=== PATIENT | female | born 1940 | race Caucasian/White ===

== ENCOUNTER 2018-05-13 23:16 | Emergency (ER) | payer MEDICARE, OTHER ==
[~2018-05-13] VITALS: Ht 170.2 cm; Wt 79.4 kg
--- OUTSIDE RECORDS SUMMARY | ~2018-05-13 | XMS | Clinical Summary ---
Demographics + + + | Address | [address] | | | [place] [address] | + + + | Home Phone | | + + + | Preferred Language | Unknown | + + + | Marital Status | Single | + + + | Shinto Affiliation | Unknown | + + + | Race | White | + + + | Ethnic Group | Not or | + + + Author + + + | Author | [facility] | + + + | Organization | [facility] | + + + | Address | Unknown | + + + | Phone | Unavailable | + + + Support + + +---------+ + | Name | Relationship | Address | Phone | + + +---------+ + | Cyndi Winters | ECON | Unknown | | + + +---------+ + | Lior Hanna | ECON | Unknown | | + + +---------+ + Care Team Providers + +------+ + | Care Home Health Aid Name | Role | Phone | + +------+ + | Luis A Burris MD | PP | | + +------+ + Source Comments BLANKA is fully live on both [facility] and [facility] [place] Allergies No Known Allergies Current Medications + + +-------+---------+------+------+-------+ | Prescription | Sig. | Disp. | Refills | Star | End | Statu | | | | | | t | Date | s | | | | | | Date | | | + + +-------+---------+------+------+-------+ | FOLBEE OR | Take by mouth. | | | | | Activ | | | | | | | | e | + + +-------+---------+------+------+-------+ | Magnesium 250 mg | Take by mouth once | | | | | Activ | | Oral Tablet | daily. | | | | | e | + + +-------+---------+------+------+-------+ | levothyroxine 100 | Take 100 mcg by | | | | | Activ | | mcg Oral Tablet | mouth once daily. | | | | | e | + + +-------+---------+------+------+-------+ | trazodone 100 mg | Take 100 mg by mouth | | | | | Activ | | Oral Tablet | three times daily. | | | | | e | + + +-------+---------+------+------+-------+ | VITAMIN E ORAL | Take by mouth. | | | | | Activ | | | | | | | | e | + + +-------+---------+------+------+-------+ | CALCIUM ORAL | Take by mouth. | | | | | Activ | | | | | | | | e | + + +-------+---------+------+------+-------+ | ASPIRIN ORAL | Take by mouth. | | | | | Activ | | | | | | | | e | + + +-------+---------+------+------+-------+ | SPIRONOLACTONE | Take by mouth. | | | | | Activ | | ORAL | | | | | | e | + + +-------+---------+------+------+-------+ | cycloSPORINE 0.05 | 1 drop two times | | | | | Activ | | % ophthalmic | daily. | | | | | e | | dropperette | | | | | | | + + +-------+---------+------+------+-------+ | CHOLECALCIFEROL | Take by mouth. 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 | + + + Family History + + +------+ + | Medical History | Relation | Name | Comments | + + +------+ + | Additional Family | Father | | ALS | | History | | | | + + +------+ + | Additional Family | Maternal | | breast cancer | | History | Aunt | | | + + +------+ + | Cataract | | | | + + +------+ + + +------+--------+ + | Relation | Name | Status | Comments | + +------+--------+ + | Father | | | | + +------+--------+ + | Maternal Aunt | | | | + +------+--------+ + Social History + + + +--------+ + | Tobacco Use | Types | Packs/Day | Years | Date | | | | | Used | | + + + +--------+ + | Former Smoker | Cigarettes | 1 | 15 | Quit: 09/29/1969 | + + + +--------+ + + +---+---+---+ | Smokeless Tobacco: | | | | | Never Used | | | | + +---+---+---+ + + +---------+ + | Alcohol Use | Drinks/We | oz/Week | Comments | | | ek | | | + + +---------+ + | Yes | 7 | 4.2 | | | | Standard | | | | | drinks or | | | | | | | | | | equivalen | | | | | t | | | + + +---------+ + + + + | Sex Assigned at | Date Recorded | | | | + + + | Not on file | | + + + Last Filed Vital Signs + +---------+ + | Vital Sign | Reading | Time Taken | + +---------+ + | Blood Pressure | 118/82 | 10/24/2008 8:25 AM PST | + +---------+ + | Pulse | 60 | 10/24/2008 8:25 AM PST | + +---------+ + | Temperature | - | - | + +---------+ + | Respiratory Rate | 16 | 10/24/2008 8:25 AM PST | + +---------+ + | Oxygen Saturation | - | - | + +---------+ + | Inhaled Oxygen | - | - | | Concentration | | | + +---------+ + | Weight | - | - | + +---------+ + | Height | - | - | + +---------+ + | Body Mass Index | - | - | + +---------+ + Plan of Treatment +--------+---------+ + + + | Date | Type | Specialty | Care Team | Description | +--------+---------+ + + + | 07/22/ | Office | | Michaelle Guerrero, | | | 2018 | Visit | | MDPhD [address] | | | | | | [address] | | | | | | [place], [place] | | | | | | [address] | | | | | | [phone] | | | | | | | | +--------+---------+ + + + + + + + + | Health Maintenance | Due Date | Last Done | Comments | + + + + + | INFLUENZA VACCINE | | | | | (FLU SHOT) | 8 | | | + + + + + Results Not on filefrom Last 3 Months Insurance + +--------+ +--------+ + + | Payer | Benefi | Subscriber | Type | Phone | Address | | | t Plan | ID | | | | | | / | | | | | | | Group | | | | | + +--------+ +--------+ + + | MEDICARE | MEDICA | xxxxxxxxxx | Medica | [phone] | [address] | | | RE A & | | re | [phone] | [place] [address] | | | B | | | | | + +--------+ +--------+ + + | MODA MEDICARE | MODA | xxxxxxxxx | POS | [phone] | [address] [address] | | SUPPLEMENT | MEDICA | | | [phone] | [place] [address] | | | RE | | | | | | | SUPPLE | | | | | | | MENT | | | | | + +--------+ +--------+ + + + +--------+ +--------+ + + | Guarantor Name | Accoun | Relation to | Date | Phone | Billing Address | | | t Type | Patient | of | | | | | | | | | | + +--------+ +--------+ + + | HINA DONOVAN | Person | Self [birth year] Home: | [address] | | | al/Fam | | 1940 | [phone] | [place] [address] | | | andrés | | | [phone] | | + +--------+ +--------+ + +"
--- OUTSIDE RECORDS SUMMARY | ~2018-05-13 | XMS | Clinical Summary ---
Demographics + + + | Address | [address] | | | [place] [address] | + + + | Home Phone | | + + + | Preferred Language | Unknown | + + + | Marital Status | Single | + + + | Adventist Affiliation | Unknown | + + + | Race | Unknown | + + + | Ethnic Group | Unknown | + + + Author + + + | Author | [facility] | | | and [place] | + + + | Organization | [facility] | | | and [place] | + + + | Address | Unknown | + + + | Phone | Unavailable | + + + Care Team Providers + +------+ + | Care Sound Cutter Name | Role | Phone | + +------+ + PP | Unavailable | + +------+ + Allergies Not on File Current Medications Not on file Active Problems Not on file Social History + +-------+ +--------+------+ | Tobacco Use | Types | Packs/Day | Years | Date | | | | | Used | | + +-------+ +--------+------+ | Never Assessed | | | | | + +-------+ +--------+------+ + + + | Sex Assigned at | Date Recorded | | | | + + + | Not on file | | + + + Plan of Treatment + + + + + | Health Maintenance | Due Date | Last Done | Comments | + + + + + | Vaccine: | | | | | Dtap/Tdap/Td (1 - | 9 | | | | Tdap) | | | | + + + + + | Vaccine: | | | | | Pneumococcal 65+ | 5 | | | | Low/Medium Risk (1 | | | | | of 2 - PCV13) | | | | + + + + + | Vaccine: Influenza | | | | | (#1) | 8 | | | + + + + + Results Not on filefrom Last 3 Months"
--- OUTSIDE RECORDS SUMMARY | ~2018-05-13 | XMS | Clinical Summary ---
Demographics + + + | Address | [address] | | | [place] [address] | + + + | Home Phone | | + + + | Preferred Language | Unknown | + + + | Marital Status | Single | + + + | Jewish Affiliation | Unknown | + + + | Race | Unknown | + + + | Ethnic Group | Unknown | + + + Author + + + | Author | [facility] | | | and [place] | + + + | Organization | [facility] | | | and [place] | + + + | Address | Unknown | + + + | Phone | Unavailable | + + + Care Team Providers + +------+ + | Care Cisco Consultant Name | Role | Phone | + [...]
--- OUTSIDE RECORDS SUMMARY | ~2018-05-13 | XMS | Clinical Summary ---
Demographics + + + | Address | [address] | | | [place] [address] | + + + | Home Phone | | + + + | Preferred Language | Unknown | + + + | Marital Status | Single | + + + | Roman Catholic Affiliation | Unknown | + + + [...] Team Providers + +------+ + | Care Professor Of Geography Name | Role | Phone | + +------+ + | Luis A Burris MD | PP | | + +------+ + Source Comments BLANKA is fully live on both [facility] and [facility] InPatient.[facility] Allergies No Known Allergies Current Medications + [...] | 2018 | Visit | | [address]PhD [address] | | | | | | [address] | | | | | | [place], [place] | | | | | | [address] | | | | | | [phone] | | | | | | | [...] & | | re | [phone] | [place] [address] | | | B | | | | | + +--------+ +--------+ + + | MODA MEDICARE | MODA | xxxxxxxxx | POS | [phone] | [address] [phone] | | SUPPLEMENT | MEDICA | | | [phone] | [place] [address] | | | RE | | | [...] | 1940 | [phone] | [place] [address] | | | andrés | | | [phone] | | + +--------+ +--------+ + +"
[2018-05-13] MEDS ORDERED: LEVOTHYROXINE137 MCG PO (23:40)
[2018-05-13] MEDS ORDERED: ALDACTAZIDE 251 EACH PO (23:41)
[2018-05-13] MEDS ORDERED: TRAZODONE HCL100 MG PO (23:41)
[2018-05-13] MEDS ORDERED: ASPIR-LOW81 MG PO (23:41)
[2018-05-13] MEDS ORDERED: MAGNESIUM500 MG PO (23:42)
[2018-05-13] MEDS ORDERED: VITAMIN D32000 UNIT PO (23:42)
[2018-05-13] MEDS ORDERED: VITAMIN E400 UNI1 PO (23:42)
[2018-05-13] MEDS ORDERED: CALCIUM600 MG PO (23:43)
[2018-05-13] MEDS ORDERED: FOLIC ACID1 MG PO (23:43)
--- NOTE | 2018-05-14 15:39 | EKG ---
[facility] [address], [place] [address] Signed Sinus rhythm with marked sinus arrhythmia with 1st degree AV block Possible Anterior infarct , age undetermined Abnormal ECG Confirmed by GAYLE PUGH MD ([id number]) on 05/14/2018 3:38:46 PM Electronically Signed By: GAYLE PUGH MD 05/14/18 1539 PATIENT NAME: JOHNSONHINA L Electrocardiogram DATE OF : 40 PHYSICIAN: GAYLE PUGH MD REPORT #: [id number] REPORT IS CONFIDENTIAL AND NOT TO BE RELEASED WITHOUT AUTHORIZATION
== END 2018-05-14 02:57 | disposition home or self-care (01) ==
LOC: ED 23:16
DX: T43.211A Poisoning by selective serotonin and norepinephrine reuptake inhibitors, accidental (unintentional), initial encounter (principal); R55 Syncope and collapse; Z88.5 Allergy status to narcotic agent; Z88.8 Allergy status to other drugs, medicaments and biological substances; Z79.899 Other long term (current) drug therapy; Z79.82 Long term (current) use of aspirin; W18.30XA Fall on same level, unspecified, initial encounter
CPT/HCPCS: 36415; 71045; 80053; 84484; 85025; 93005; 93010; 99284

== ENCOUNTER 2021-01-04 07:55 | Day surgery (SDC) | payer MEDICARE, OTHER ==
[~2021-01-04] VITALS: Ht 170.2 cm; Wt 77.3 kg
[~2021-01-04 07:55] MED LIST: ALDACTAZIDE 251 EACH PO; ASPIR-LOW81 MG PO; CALCIUM600 MG PO; FOLIC ACID1 MG PO; LEVOTHYROXINE137 MCG PO; MAGNESIUM500 MG PO; TRAZODONE HCL100 MG PO; VITAMIN D32000 UNIT PO; VITAMIN E400 UNI1 PO
[2021-01-04] MEDS ORDERED: FOLBIC TABLET1 EACH PO (08:32)
[2021-01-04] MEDS ORDERED: RESTASIS1 DROP OD (08:33)
--- NOTE | 2021-01-04 11:10 | NUR ---
PT HAS RETURNED FROM XR DEPT. HAS MANY WARM BLANKETS ON STATES SHES STILL COLD SO WARMING HOSE IN BLANKETS AND FEET WRAPPED IN WARM BLANKET. RAILS UP X 2. FAMILY AT .
[2021-01-04] MEDS ORDERED: MOTRIN IB200 MG PO (15:49)
[2021-01-04] MEDS ORDERED: TYLENOL EXTRA500 MG PO (15:49)
[2021-01-04] MEDS ORDERED: PERCOCET 7.5-31 EACH PO (15:49)
--- NOTE | 2021-01-04 15:49 | NUR ---
01/04/21 1549 Kacey Giordano 1529 PATIENT ARRIVES TO PACU SLEEPING. RESP EVEN AND UNLABORED, MASK AT 6 LITERS. 1535 PATIENT SLEEPING, AWAKENS WITH VERBAL STIMULI, ABLE TO STAY AWAKE AND ASK QUESTIONS APPROPRIATELY. RESP EVEN AND UNLABORED, MASK OFF, ROOM AIR SATS >95%. PATIENT REPORTS MINIMAL PAIN. 1545 PATIENT AWAKE AND TALKING WITH STAFF APPROPRIATELY. RESP EVEN AND UNLABORED, ROOM AIR SATS >93%. PATIENT REPORTS PAIN 4/10, TOLERABLE, DENIES PAIN MEDS. DENIES NAUSEA.
--- NOTE | 2021-01-04 16:32 | NUR ---
PATIENT BACK IN DAY SURGERY ROOM FROM PACU. RATES PAIN 2/10 IN LEFT BREAST. SURGICAL DRESSING UNDER LEFT BREAST WITH SCANT AMOUNT OF RED DRAINAGE. SURGICAL SITE WITH STERI STRIPS IN LEFT ARMPIT WITH SMALL AMOUNT OF RED DRAINAGE. RIGHT HAND IV WNL, SALINE LOCKED. VS CHECKED. SCDs ON. TOLERATING WATER. FRIEND AT BEDSIDE. SOUP ORDERED FOR PATIENT. CALL LIGHT WITHIN REACH.
--- NOTE | 2021-01-04 17:45 | NUR ---
ASSISTED PATIENT WITH PUTTING ON JARRELL FOR BREAST SUPPORT. NOTED SURGIAL SITES UNCHANGED, NO NEW DRAINAGE AND INTACT. PATIENT UP DRESSING SELF, REPORTS READY TO GO HOME. ADMINISTERED PAIN PILL PER MAR. PATIENT TOLERATED WELL. REPORTS PAIN IS TOLERABLE RATES 4/10 ON PAIN SCALE. PROVIDED PATIENT WITH DISCHARGE INSTRUCTION AND THEN PROVIDED WHEELCHAIR RIDE TO FRONT. DAUGHTER IN ROOM, ANSWERED QUESTIONS AND CONCERNS.
--- NOTE | 2021-01-06 13:48 | OR ---
[facility] [address], [place] [address] Signed DATE OF OPERATION: 01/04/2021 SURGEON: Shawna Tinoco MD PREOPERATIVE DIAGNOSIS: Left-sided infiltrating ductal breast carcinoma. POSTOPERATIVE DIAGNOSES: 1. Left-sided infiltrating ductal breast carcinoma. 2. Negative sentinel lymph nodes on frozen pathology. PROCEDURE: 1. Injection of methylene blue dye for sentinel lymph node identification. 2. Left deep axillary sentinel lymph node biopsies x2. 3. Left needle localized excision of breast tumor (partial mastectomy/lumpectomy). 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 Jaime Burris. She was found on mammography to have an abnormality of the left breast, which was biopsied and found to have infiltrating ductal carcinoma. This was performed by Dr. Escobar. Residual calcifications were noted at the site of biopsy and biopsy marker was left in place. She has no prior history of breast biopsy or prior history of breast cancer and has a family history of breast cancer in a maternal aunt. She has no other family members with breast cancer. She is admitted at this time to undergo excision of the tumor as well as sentinel lymph node biopsy, possible axillary dissection depending on frozen pathology of the sentinel lymph nodes. The risk of bleeding, infection, cosmetic deformity, and other unforeseen complications were reviewed with her. She understands and wished to proceed. FINDINGS: Needle localization by Dr. Escobar showed the lesion in question to be in the inferior central breast rather than the upper outer quadrant as had been reported by me previously. Wide resection was undertaken of this area, which included the microcalcifications as well as the biopsy marker and was confirmed on specimen radiograph to have complete excision of the area. As regards to the left axilla, good uptake of methylene blue dye as well as radionuclide Electronically Signed By: SHAWNA TINOCO MD 01/06/21 1348 PATIENT NAME: HINA ORNELAS OPERATIVE REPORT DATE OF : 40 REPORT #: [id number] PHYSICIAN: SHAWNA TINOCO MD PCP: JAIME BURIRS MD REPORT IS CONFIDENTIAL AND NOT TO BE RELEASED WITHOUT AUTHORIZATION [facility] [address], [place] [address] Signed was noted and 2 sentinel lymph nodes were identified and frozen pathology under the direction of Dr. Davis showed there to be no evidence of metastatic disease. An inframammary incision was performed which will maintain good cosmesis. DESCRIPTION OF PROCEDURE: The patient was received from radiology suite having undergone needle localization of the nonpalpable lesion. A relatively superficial in the inferior aspect of the central breast. I reviewed the films with Dr. Escobar and advance as the point of entry for localization was in the medial breast. Good uptake in the axilla of the radionuclide was also noted. After satisfactory general anesthesia with LMA technique, 1 mL of methylene blue dye was injected in the subepithelial area in the upper outer aspect of the left breast. Uptake of the lymphatics could be readily identified. The breast was then prepared with a Betadine solution and draped sterilely. The wire emanating from the medial aspect of the left breast in the inferior portion. It was directed laterally to the central portion of the breast. Application of the C-Trak gamma probe to the left axilla identified an area of high activity. A small transverse incision was made directly in this area. Electrocautery was used to divide the parenchyma in short ways and Eyad retractors were used to provide further retraction. Additional dissection was carried deep into the axilla. [facility] retractors were used and using blunt dissection with a tonsil clamp immediately identified was a blue sentinel lymph node. This was grasped and elevated and dissected free with electrocautery and labeled as sentinel lymph node #1. It had very high ability for dye as well as radionuclide. A short distance from this another similar such sentinel node was identified, it was excised in a similar way and passed as sentinel lymph node #2. Further interrogation of the axilla showed some activity high in the axilla, but was not readily identifiable and no further efforts were made to excise it. Plain gauze was applied to the wound. Attention was turned towards the primary lesion. Gentle manipulation of the wire showed it to emanate from the medial to central position. An inframammary skin incision was made and a flap developed superiorly and blunt dissection to the medial aspect ultimately identified the wire which was then delivered into the wound. The parenchyma was grasped with an Allis clamp and using electrocautery, wide resection was undertaken incorporating the pathway of the wire. The excision was taken beyond the hook of the wire; it is noted that the lesion in question was about a cm proximal to the hook. Wide resection was undertaken in this area to provide a negative margin. The medial and lateral aspects of the specimen were markedly sutured for orientation. Irrigation was undertaken. Palpation revealed no specific palpable abnormality into the breast Electronically Signed By: SHAWNA TINOCO MD 01/06/21 1348 PATIENT NAME: HINA ORNELAS OPERATIVE REPORT DATE OF : 40 REPORT #: [id number] PHYSICIAN: SHAWNA TINOCO MD PCP: JAIME BURRIS MD REPORT IS CONFIDENTIAL AND NOT TO BE RELEASED WITHOUT AUTHORIZATION [facility] [address], [place] [address] Signed parenchyma. Electrocautery was used for hemostasis after irrigation with sterile water. The wound was then packed. Attention was turned towards the axilla. There was good hemostasis. Irrigation was undertaken. The wound was closed with interrupted 2-0 Vicryl and running subcuticular 3-0 Vicryl. By this point, frozen pathology by Dr. Davis was reported showing both sentinel lymph nodes to be negative for metastatic disease. Steri-Strips were applied to the area. Promptly thereafter, the radiologist confirmed that the lesion in question was in the excised specimen including the marker as well as the parenchymal calcifications associated with the neoplasm. The breast wound was then closed with interrupted 2-0 Vicryl and deeper layers and running subcuticular 3-0 Vicryl for the skin. Steri-Strips were applied to each site and an Acticoat silver sponge dressing applied to the mammary crease. The patient was allowed to emerge from anesthesia, extubated, and taken to the recovery room in good condition having suffered no complications. Sponge, needle, and instrument counts were reported as correct x3. MD RICHY Pagan/TAMIKO /[id number] cc: MD Cecilia Urena MD Copies: JAIME BURRIS MD, CYNTHIA SUE MD ~ Electronically Signed By: SHAWNA TINOCO MD 01/06/21 1348 PATIENT NAME: JOHNSONHINA OPERATIVE REPORT DATE OF : 40 REPORT #: [id number] PHYSICIAN: SHAWNA TINOCO MD PCP: JAIME BURRIS MD REPORT IS CONFIDENTIAL AND NOT TO BE RELEASED WITHOUT AUTHORIZATION
--- NOTE | 2021-01-09 11:28 | PATH ---
[facility] [address] [facility] [place], [place] [address] Signed SPECIMEN(S): A LEFT BREAST SENTINEL LYMPH NODE 1 SPECIMEN(S): B LEFT BREAST SENTINEL LYMPH NODE 2 SPECIMEN(S): C LEFT INFERIOR CENTRAL BREAST SPECIMEN SOURCE: A. LEFT BREAST SENTINEL LYMPH NODE 1 B. LEFT BREAST SENTINEL LYMPH NODE 2 C. LEFT INFERIOR CENTRAL BREAST CLINICAL HISTORY: Infiltrating ductal carcinoma of left breast. FROZEN SECTION DIAGNOSIS: A. [place] lymph node #1: - No evidence of malignancy in outside energy sales representatives section frozen. (Dr. Davis, 01/04/21) B. [place] lymph node #2: - No evidence of malignancy in outside energy sales representatives section frozen. (Dr. Davis, 01/04/21) Frozen section diagnoses called to Dr. Santana. AI (under the direct supervision of a pathologist) The Gross Description was prepared using a voice recognition system. The report was reviewed for accuracy; however, sound-alike word errors, addition and/or deletions may occur. If there is any question about this report, please contact Client Services. FINAL PATHOLOGIC DIAGNOSIS: A. [place] lymph node #1, left axilla, excisional biopsy: - No evidence of malignancy in one lymph node (0/1). - See microscopic description. B. [place] lymph node #2, left axilla, excisional biopsy: - No evidence of malignancy in one lymph node (0/1). - See microscopic description. C. Breast, left inferior central, lumpectomy: - Invasive ductal carcinoma with the following features: - Tumor size: 6 mm, see Comment. - Histologic type: Invasive carcinoma of no special type (ductal). - Histologic grade (Ganga histologic score), see Comment: - Glandular (acinar)/tubular differentiation: Score 3. - Nuclear pleomorphism: Score 3. - Mitotic rate: Score 3. PATIENT NAME: HINA ORNELAS PATHOLOGY DATE OF : 40 REPORT #: [id number] PHYSICIAN: NADIA PATHOLOGY PCP: JAIME ORTEGA MD REPORT IS CONFIDENTIAL AND NOT TO BE RELEASED WITHOUT AUTHORIZATION [facility] [address] [place], [place] [address] Signed - Overall grade: Grade 3 of 3 (total score 9 of 9). - Tumor focality: Single focus of invasive carcinoma. - Ductal carcinoma in situ (DCIS): Present, negative for extensive intraductal component (EIC). - Architectural patterns: Solid, cribriform, and comedo. - Nuclear grade: Grade 3 (high). - Necrosis: Present, central (expansive "comedo" necrosis). - Lobular carcinoma in situ (LCIS): Not identified. - Margins: - Invasive carcinoma margins: Uninvolved by invasive carcinoma. - Distance from closest margin: 1 mm from undesignated margin. - Greater than 10 mm from medial and lateral margins. - DCIS margins: Uninvolved by DCIS. - Distance from closest margin: 3 mm from undesignated margin. - Greater than 10 mm from medial and lateral margins. - Regional lymph nodes: Uninvolved by tumor cells. - Total number of lymph nodes examined: 2. - Number of sentinel nodes examined: 2. - Treatment effect in the breast: No known pre-surgical therapy. - Lymphovascular invasion: Not identified. - Breast biomarker studies: Please refer to previously performed testing (VS-129, 12/11/2020) interpreted as ER positive, ND positive, HER2 negative (1+) by IHC, and Ki-67 proliferation index 22.4%. - Additional findings: Biopsy site changes associated with invasive carcinoma, fat necrosis, fibrocystic change. - Microcalcifications: Present associated with DCIS and non-neoplastic breast tissue. - Pathologic stage classification (pTNM, AJCC 8th ed.): pT1b (sn) pN0. COMMENT: Regarding specimen C: The remaining invasive carcinoma within the lumpectomy specimen is smaller than the carcinoma present within the corresponding biopsy (-). Therefore, the size of the tumor is based on the invasive carcinoma present within the biopsy specimen. The mitotic rate of the tumor is higher in the biopsy specimen than in the lumpectomy specimen, therefore the mitotic rate is also based on that of the biopsy specimen. As part of [employer] Quality Improvement Program, selected slides from this case were reviewed by another member of our pathology staff. PATIENT NAME: HINA ORNELAS PATHOLOGY DATE OF : 40 REPORT #: [id number] PHYSICIAN: NADIA PATHOLOGY PCP: JAIME ORTEGA MD REPORT IS CONFIDENTIAL AND NOT TO BE RELEASED WITHOUT AUTHORIZATION [facility] [address], [place] [address] Signed Note: The lumpectomy was received with two stitches, one designating the medial margin and the opposite designating the lateral margin. Per discussion with the submitting surgeon, the margins of interest were determined to be the medial margin, lateral margin, and all other surfaces were to be considered one margin (undesignated margin). NAL:NRT:cml:C1NR MICROSCOPIC EXAMINATION: Histologic sections of all submitted blocks are examined by light microscopy. These findings, together with the gross examination, support the pathologic diagnosis. Pancytokeratin (AE1/AE3) immunohistochemical stains (with appropriately staining controls) were performed on each section of the sentinel lymph nodes and confirm the absence of tumor cells. GROSS DESCRIPTION: Three specimens are received in three containers, labeled "CF." A. The specimen, labeled "CF, A," and designated on the requisition "sentinel lymph node #1, left breast, 10 PC, infiltrating ductal carcinoma," is received fresh for frozen section diagnosis and consists of 3.5 x 2.5 x 1.5 cm piece of fat. A2 0.0 x 1.1 x 0.9 cm lymph node candidate is identified, vertically sectioned, and outside energy sales representatives sections are submitted for frozen section in AFR1. The remainder of the lymph node candidate is submitted entirely as follows: A1 contents from cassette labeled "A FS1" A2 contents from cassette labeled "A2" B. The specimen, labeled "CF, B," and designated on the requisition "SLN #2, left breast, 10 PC," is received fresh for frozen section diagnosis and consists of a 2.5 x 1.3 x 0.5 cm piece of fat. A 2.5 x 0.5 x 0.5 cm lymph node candidate is identified, serially sectioned, and outside energy sales representatives sections are submitted for frozen section in BFR1. The remainder of the lymph node candidate is submitted entirely as follows: B1 contents from cassette labeled "B FS1" B2 contents from cassette labeled "B2" C. The specimen, labeled "CF, C," and designated on the requisition "the left inferior central breast cancer, long stitch pastrana lateral, short stitch pastrana medial," is received in formalin and consists of a 26 g, 5.7 x 4.7 x 3.5 cm, somewhat friable, lumpectomy specimen that is oriented with a short suture indicating medial and a long suture indicating lateral. Additionally the specimen contains a silver localization wire that runs the medial to lateral. Per PATIENT NAME: HINA ORNELAS PATHOLOGY DATE OF : 40 REPORT #: [id number] PHYSICIAN: NADIA PATHOLOGY PCP: JAIME ORTEGA MD REPORT IS CONFIDENTIAL AND NOT TO BE RELEASED WITHOUT AUTHORIZATION [facility] [address] [place] [id number] [address] request [address] Davis (after speaking with the surgeon) the specimen is inked as follows: Medial = red; lateral = orange; remaining specimen = blue. The specimen is sectioned from lateral to medial into 8 slices to reveal an ill-defined, indurated, 1.2 x 1.0 x 0.7 cm lesion (slices 5-7) that grossly appears to involve the blue inked margin, is 0.4 cm from the medial inked margin, and 1.7 cm from the lateral inked margin. The remaining parenchyma is comprised of yellow fibrofatty and jamison-white fibroglandular tissue. Fibroglandular tissue comprises approximately 5% of the remaining parenchyma. An additional discrete mass/lesion is not grossly identified. Also in the container are multiple yellow, fibrofatty tissue fragments from less than 0.1 up to 0.8 cm in greatest dimension. The specimen is submitted entirely as follows: C1 additional fibrofatty tissue fragments from within container C2-C5 lateral end perpendicularly sectioned (slice one) C6-C11 slice 2 cross-sectioned C12-C19 slice 3 cross-sectioned C20-C23 slice 4 cross-sectioned C24-C25 slice 5 bisected C26-C29 slice 6 sectioned C30-C31 slice 7 bisected C32-C34 medial end perpendicularly cross-sectioned (slice 8) Cold ischemic time: Grossly indeterminate due to lack of information Formalin fixation time: Approximately 21 hours ADDITIONAL NOTES: Immunohistochemical and/or in situ hybridization studies were performed on this case with the appropriate positive controls that react as expected. This test was developed and its performance characteristics determined by [employer]. It has not been cleared or approved by the U.S. Food and Drug Administration. The FDA has determined that such clearance or approval is not necessary. This test is used for clinical purposes. It should not be regarded as investigational or for research. [employer] is certified under the Clinical Laboratory Improvement Amendments of 1988 (CLIA) as qualified to perform high complexity clinical laboratory testing. This assay has not been validated for specimens that have been decalcified. PERFORMING LABORATORY: PATIENT NAME: HINA ORNELAS PATHOLOGY DATE OF : 40 REPORT #: [id number] PHYSICIAN: NADIA PATHOLOGY PCP: JAIME ORTEGA MD REPORT IS CONFIDENTIAL AND NOT TO BE RELEASED WITHOUT AUTHORIZATION [facility] [address] [facility] [place], [place] [address] Signed [facility], [address] [address] (CLIA# [id number]). The technical component was performed by [employer], [address] [place] [id number] (Truck Driver: Sonia Llanos MD; CLIA# [id number]). Professional interpretation was performed by [employer] [facility], [address] [address] (CLIA# [id number]). Diagnostician: Naheed Davis MD Pathologist Electronically Signed 01/09/2021 Copies: ~ PATIENT NAME: HINA ORNELAS PATHOLOGY DATE OF : 40 REPORT #: [id number] PHYSICIAN: NADIA GALLEGO PCP: JAIME ORTEGA MD REPORT IS CONFIDENTIAL AND NOT TO BE RELEASED WITHOUT AUTHORIZATION
== END 2021-01-04 17:45 | disposition home or self-care (01) ==
LOC: DS 07:55 → OPS 07:55 → EDSTATUS 09:00 → OPS 09:00 → US 09:00 → OPS 17:45
PROVIDERS: ATTEND Surgery
PROC: 0HBU0ZZ Excision of Left Breast, Open Approach (ICD-10-PCS; principal; 2021-01-04 11:30)
PROC: 8E0W3EZ Fluorescence Guided Procedure of Trunk Region, Percutaneous Approach (ICD-10-PCS; 2021-01-04 11:30)
PROC: 0HBU3ZX Excision of Left Breast, Percutaneous Approach, Diagnostic (ICD-10-PCS; 2021-01-04 11:30)
DX: C50.912 Malignant neoplasm of unspecified site of left female breast (principal); K21.9 Gastro-esophageal reflux disease without esophagitis; I10 Essential (primary) hypertension; E03.9 Hypothyroidism, unspecified; N28.9 Disorder of kidney and ureter, unspecified; Z79.52 Long term (current) use of systemic steroids; Z79.82 Long term (current) use of aspirin
CPT/HCPCS: 00404; 19281; 76098; 78195; A9541; J0690; J1100; J1644; J1885; J2001; J2405; J2704; J3010; J7121; Q9968

== ENCOUNTER 2022-07-19 20:20 | Emergency (ER) | payer MEDICARE, OTHER ==
[~2022-07-19] VITALS: Ht 170.2 cm; Wt 76.2 kg
[~2022-07-19 20:20] MED LIST changes: +FOLBIC TABLET1 EACH PO; +MOTRIN IB200 MG PO; +PERCOCET 7.5-31 EACH PO; +RESTASIS1 DROP OD; +TYLENOL EXTRA500 MG PO
--- OUTSIDE RECORDS SUMMARY | 2022-07-19 20:23 | XMS ---
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 ENancy VISIT COUNT (12 MO.) 1 SABINO Lira TOTAL 1 NOTE: Visits indicate total known visits. ED/UCC VISIT TRACKING (12 MO.) 07/19/2022 20:20 SABINO Callahan OR TYPE: Emergency COMPLAINT: - FOOT SWELLING INPATIENT VISIT TRACKING (12 MO.) No inpatient visits to display in this time frame [email or web address]
[2022-07-19] MEDS ORDERED: GABAPENTIN300 MG PO (21:03)
[2022-07-19] MEDS ORDERED: ANASTROZOLE1 MG PO (21:04)
[2022-07-19] MEDS ORDERED: CYCLOBENZAPRINE10 MG PO (21:04)
[2022-07-19] MEDS ORDERED: ROSUVASTATIN CAL5 MG PO (21:04)
[2022-07-20] MEDS ORDERED: COLCHICINE0.6 M1 PO (00:52)
--- NOTE | 2022-07-21 20:56 | EKG ---
[facility] [address] [place] [address] Signed Atrial flutter with variable AV block Left axis deviation Left ventricular hypertrophy with QRS widening and repolarization abnormality ( [place] product ) Cannot rule out Septal infarct (cited on or before 13-MAY-2018) Abnormal ECG When compared with ECG of 02-JAN-2021 10:59, Atrial flutter has replaced Sinus rhythm ST now depressed in Lateral leads Inverted T waves have replaced nonspecific T wave abnormality in Lateral leads Confirmed by Madelin Botello MD () on 07/21/2022 8:55:57 PM Electronically Signed By: MADELIN BOTELLO MD 07/21/222055 PATIENT NAME: HINA ORNELAS Electrocardiogram DATE OF : 40 PHYSICIAN: MADELIN BOTELLO MD REPORT #: [id number] REPORT IS CONFIDENTIAL AND NOT TO BE RELEASED WITHOUT AUTHORIZATION
== END 2022-07-20 01:23 | disposition home or self-care (01) ==
LOC: ED 20:20
DX: M10.9 Gout, unspecified (principal); Z88.5 Allergy status to narcotic agent; Z88.8 Allergy status to other drugs, medicaments and biological substances
CPT/HCPCS: 36415; 71045; 80053; 83605; 83880; 84484; 84550; 85025; 85379; 93005; 93010; 93971; 99284-25; G0480

== ENCOUNTER 2024-05-25 12:32 | Emergency (ER) | payer MEDICARE, OTHER ==
[~2024-05-25] VITALS: Ht 170.2 cm; Wt 63.3 kg
[~2024-05-25 12:32] MED LIST changes: +ANASTROZOLE1 MG PO; +COLCHICINE0.6 M1 PO; +CYCLOBENZAPRINE10 MG PO; +GABAPENTIN300 MG PO; +ROSUVASTATIN CAL5 MG PO
[2024-05-25] MEDS ORDERED: CEFTRIAXONE/SODIUM CHLORIDE 2 GM/100 ML PIGGYBACK IV ONE (13:00)
[2024-05-25 13:07] LABS: BASOPHILS 0.3 % (0-2); EOSINOPHILS 0.3 % (0-6); HEMATOCRIT 41.6 % (35.0-50.0); HEMOGLOBIN 14.1 g/dL (12.0-18.0); LYMPHOCYTES 11.7 % (24-44); MCH 32.1 (27-36); MCV 94.4 fl (81-99); NEUTROPHILS 77.7 % (39-80); PLATELET COUNT 211 K/uL (140-440); RBC 4.41 M/ul (4.3-5.7); RDW 13.2 (10.5-15.0)
[2024-05-25 13:21] LABS: ALBUMIN 3.2 g/dL (3.4-5.0); ALBUMIN/GLOBULIN RATIO 0.84 (1.1-2.4); ANION GAP 10.4 (7-21); BILIRUBIN, TOTAL 0.8 ng/dL (0.2-1.0); BUN/CREATININE RATIO 18.93 (6.0-28.6); CREATININE, SERUM 1.32 mg/dL (0.55-1.02); POTASSIUM 3.4 mmol/L (3.5-5.1)
[2024-05-25 14:19] VITALS: BP 121/79
== END 2024-05-25 14:22 | disposition home or self-care (01) ==
LOC: ED 12:32
PROVIDERS: Emergency Medicine
DX: L03.116 Cellulitis of left lower limb (principal); I48.91 Unspecified atrial fibrillation; Z79.01 Long term (current) use of anticoagulants; Z88.5 Allergy status to narcotic agent; Z88.8 Allergy status to other drugs, medicaments and biological substances; Z79.899 Other long term (current) drug therapy; Z79.890 Hormone replacement therapy
CPT/HCPCS: 36415; 73630; 80053; 85025; 96374; 99283-25; J0696